=== PATIENT | female | born 1955 | race American Indian/Alaskan Native ===

== ENCOUNTER 2017-02-18 10:01 | Emergency (ER) | payer MEDICAID ==
--- NOTE | 2017-02-18 12:16 | Emergency Department Report ---
ED Back Pain/Injury HPI - General Chief Complaint: Fall Stated Complaint: FALL/LOWER BACK PAIN Time Seen by Provider: 02/18/17 12:10 Source: patient Limitations: Physical Limitation - History of Present Illness Initial Comments: 62-year-old female past medical history hypertension, left breast cancer, spondylolisthesis, sciatica, lumbar spine surgery November 2016 presents with complaint of lower back pain since 1 PM yesterday. Patient states that she showered walked into her bedroom and tripped over a towel. Patient fell in a seated position. Denies any loss of consciousness. Was able to stand up on her own afterward. States that she called and informed her orthopedic/spine surgeon advised her to come to the ED for evaluation. On exam patient is awake alert and oriented 3 denies any head trauma during fall. Patient is ambulatory without assistance in the examination room is able to take several steps independently without assistance. States she has pain in her lower back. Some mild radiation to the right buttock. Denies any new saddle paresthesias no bladder or bowel incontinence reported by the patient. MD Complaint: back pain, fall Onset/Timin -: days(s) Similar Symptoms Previously: Yes Place: home Severity scale (0 -10): 6 Quality: aching Consistency: intermittent Improves With: immobilization, supine Worsens With: movement Context: while lifting, turning/twisting Associated Symptoms: denies other symptoms - Related Data Home Medications Medication Instructions Recorded Confirmed Last Taken Anastrozole (Nf) [Arimidex (Nf)] 1 mg PO DAILY 06/24/13 06/24/13 Unknown Ergocalciferol (Vitamin D2) 50,000 unit PO Q4W 06/24/13 06/24/13 Unknown [Vitamin D2] Lisinopril [Zestril] 20 mg PO QDAY 06/24/13 06/24/13 Unknown Ranitidine HCl [Zantac] 150 mg PO BID 06/24/13 06/24/13 Unknown Zolpidem [Ambien] 10 mg PO QHS 06/24/13 06/24/13 Unknown Previous Rx's Medication Instructions Recorded Last Taken Type Nitrofurantoin [place]/M-Cryst 100 mg PO Q12HR #20 capsule 06/24/13 Unknown Rx [Macrobid] traMADol [Ultram] 50 mg PO Q6HR PRN #10 tablet 06/24/13 Unknown Rx Allergies Allergy/AdvReac Type Severity Reaction Status Date / Time hydrocodone [Hydrocodone] AdvReac Severe Rash Verified 02/18/17 10:36 codeine AdvReac Itching Verified 02/18/17 10:40 hydrochlorothiazide AdvReac Itching Verified 02/18/17 10:40 ED Review of Systems ROS: Stated complaint: FALL/LOWER BACK PAIN Other details as noted in HPI Constitutional: denies: chills, fever Eyes: denies: eye pain, eye discharge, vision change ENT: denies: ear pain, throat pain Respiratory: denies: cough, shortness of breath, wheezing Cardiovascular: denies: chest pain, palpitations Endocrine: no symptoms reported Gastrointestinal: denies: abdominal pain, nausea, diarrhea Genitourinary: denies: urgency, dysuria, discharge Musculoskeletal: denies: back pain, joint swelling, arthralgia Skin: denies: rash, lesions Neurological: denies: headache, weakness, paresthesias Psychiatric: denies: anxiety, depression Hematological/Lymphatic: denies: easy bleeding, easy bruising ED Past Medical Hx - Past Medical History Hx Hypertension: Yes Hx Diabetes: Yes Hx GERD: Yes Hx of Cancer: Yes (LEFT BREAST) Hx Arthritis: Yes Hx Psychiatric Treatment: Yes Additional medical history: depression. SPONDYLOLISTHESIS LUMBOSACRAL REGION - Surgical History Hx Cholecystectomy: Yes Hx Breast Surgery: Yes (LEFT BREAST) Additional Surgical History: hernia repair x 2. bilateral ankle surgery. BACK SURGERY NOVEMBER 2016. HYSTERECTOMY - Social History Smoking Status: Never Smoker Substance Use Type: Prescribed - Medications Home Medications: Home Medications Medication Instructions Recorded Confirmed Last Taken Type Anastrozole (Nf) [Arimidex (Nf)] 1 mg PO DAILY 06/24/13 06/24/13 Unknown History Ergocalciferol (Vitamin D2) 50,000 unit PO Q4W 06/24/13 06/24/13 Unknown History [Vitamin D2] Lisinopril [Zestril] 20 mg PO QDAY 06/24/13 06/24/13 Unknown History Nitrofurantoin [place]/M-Cryst 100 mg PO Q12HR #20 capsule 06/24/13 Unknown Rx [Macrobid] Ranitidine HCl [Zantac] 150 mg PO BID 06/24/13 06/24/13 Unknown History Zolpidem [Ambien] 10 mg PO QHS 06/24/13 06/24/13 Unknown History traMADol [Ultram] 50 mg PO Q6HR PRN #10 tablet 06/24/13 Unknown Rx ED Physical Exam - General Limitations: Physical Limitation General appearance: alert, in no apparent distress - Head Head exam: Present: atraumatic, normocephalic - Eye Eye exam: Present: normal appearance, PERRL, EOMI - ENT ENT exam: Present: mucous membranes moist - Neck Neck exam: Present: normal inspection - Respiratory Respiratory exam: Present: normal lung sounds bilaterally. Absent: respiratory distress - Cardiovascular Cardiovascular Exam: Present: regular rate, normal rhythm. Absent: systolic murmur, diastolic murmur, rubs, gallop - GI/Abdominal GI/Abdominal exam: Present: soft, normal bowel sounds - Extremities Exam Extremities exam: Present: normal inspection - Back Exam Back exam: Present: normal inspection, full ROM - Neurological Exam Neurological exam: Present: alert, oriented X3, CN II-XII intact, normal gait - Psychiatric Psychiatric exam: Present: normal affect, normal mood - Skin Skin exam: Present: warm, dry, intact, normal color. Absent: rash ED Course Vital Signs 02/18/17 02/18/17 10:42 13:35 Temperature 98.5 F Pulse Rate 81 80 Respiratory 17 18 Rate Blood Pressure 152/99 Blood Pressure 148/92 [Right] O2 Sat by Pulse 100 Oximetry ED Medical Decision Making - Medical Decision Making A/P: Mechanical fall, acute on chronic lower back pain 1-CT shows no acute fracture, chronic degenerative changes, stable fixation from surgery 2-patient has no clinical signs of cord compression or cauda equina, distal reflexes intact, strength 5 out of 5 lower extremities, patient is ambulatory without assistance, normal rectal tone, no reports of bladder or bowel incontinence. 3-I called patient's spine surgeon at [phone] multiple times, no response. I advised patient to call her spine surgeon and informed him that she was evaluated in the ED. I provided patient with copy of her CT result. 4- patient states that she has prescription for oral Dilaudid for her chronic pain at home. Critical care attestation.: If time is entered above; I have spent that time in minutes in the direct care of this critically ill patient, excluding procedure time. ED Disposition Clinical Impression: Lower back pain Qualifiers: Chronicity: chronic Back pain laterality: bilateral Sciatica presence: with sciatica Sciatica laterality: sciatica of right side Qualified Code(s): M54.41 - Lumbago with sciatica, right side Sciatica Qualifiers: Laterality: right Qualified Code(s): M54.31 - Sciatica, right side Fall Qualifiers: Encounter type: initial encounter Qualified Code(s): W19.XXXA - Unspecified fall, initial encounter Disposition: TO HOME OR SELFCARE Is pt being admited?: No Does the pt Need Aspirin: No Condition: Stable Instructions: Back Pain (ED) Referrals: PREM PARKER MD [Staff Physician] - 3-5 Days DELL WHITE MD [Staff Physician] - 3-5 Days Time of Disposition: 13:27
--- NOTE | 2017-02-18 13:07 | Cat Scan Report ---
CT scan of lumbar spine: History: Status post fall, history of multiple spinal surgeries. Findings: Normal height of vertebral bodies. Posterior fusion L3, L4 and L5 with stabilizing rods and interpedicular screws. Spacing device at L3-L4 and L4-5 appears stable and intact. Satisfactory vertebral body alignment. No evidence of acute fracture. Diffuse disc bulge noted at L2-L3 with narrowing of the neural foramina bilaterally. Degenerative facet joints. L4-L5 and L5-S1 thecal sac and spinal canal is not optimally visualized due to artifacts from metallic hardware. Bulging disc noted at L4-L5 without any definite neural foramina narrowing. Degenerative facet joints. Impression: No evidence of acute fracture. Stable posterior fusion. Additional findings as detailed above.
[2017-02-18 13:35] VITALS: BP 148/92
== END 2017-02-18 13:33 | disposition home or self-care (01) ==
LOC: ED 10:01
DX: M54.41 Lumbago with sciatica, right side (principal); I10 Essential (primary) hypertension; E11.9 Type 2 diabetes mellitus without complications; K21.9 Gastro-esophageal reflux disease without esophagitis; M19.90 Unspecified osteoarthritis, unspecified site; F32.9 Major depressive disorder, single episode, unspecified; Z90.710 Acquired absence of both cervix and uterus; Z85.3 Personal history of malignant neoplasm of breast; Z90.49 Acquired absence of other specified parts of digestive tract; Z88.6 Allergy status to analgesic agent; W01.0XXA Fall on same level from slipping, tripping and stumbling without subsequent striking against object, initial encounter; Y93.89 Activity, other specified; Y99.8 Other external cause status; Y92.098 Other place in other non-institutional residence as the place of occurrence of the external cause
CPT/HCPCS: 72131

== ENCOUNTER 2017-04-18 22:39 | Emergency (ER) | payer MEDICAID ==
--- NOTE | 2017-04-19 02:32 | Emergency Department Report ---
ED Back Pain/Injury HPI - General Chief Complaint: Back Pain/Injury Stated Complaint: BACK PAIN Source: patient Limitations: No Limitations - Related Data Home Medications Medication Instructions Recorded Confirmed Last Taken Anastrozole (Nf) [Arimidex (Nf)] 1 mg PO DAILY 06/24/13 06/24/13 Unknown Ergocalciferol (Vitamin D2) 50,000 unit PO Q4W 06/24/13 06/24/13 Unknown [Vitamin D2] Lisinopril [Zestril] 20 mg PO QDAY 06/24/13 06/24/13 Unknown Ranitidine HCl [Zantac] 150 mg PO BID 06/24/13 06/24/13 Unknown Zolpidem [Ambien] 10 mg PO QHS 06/24/13 06/24/13 Unknown Previous Rx's Medication Instructions Recorded Last Taken Type Nitrofurantoin [place]/M-Cryst 100 mg PO Q12HR #20 capsule 06/24/13 Unknown Rx [Macrobid] traMADol [Ultram] 50 mg PO Q6HR PRN #10 tablet 06/24/13 Unknown Rx Allergies Allergy/AdvReac Type Severity Reaction Status Date / Time hydrocodone [Hydrocodone] AdvReac Severe Rash Verified 02/18/17 10:36 codeine AdvReac Itching Verified 02/18/17 10:40 hydrochlorothiazide AdvReac Itching Verified 02/18/17 10:40 ED Review of Systems ROS: Stated complaint: BACK PAIN Other details as noted in HPI ED Past Medical Hx - Past Medical History Hx Hypertension: Yes Hx Diabetes: Yes Hx GERD: Yes Hx Arthritis: Yes Hx Psychiatric Treatment: Yes Additional medical history: depression. SPONDYLOLISTHESIS LUMBOSACRAL REGION - Surgical History Hx Cholecystectomy: Yes Hx Breast Surgery: Yes (LEFT BREAST) Additional Surgical History: hernia repair x 2. bilateral ankle surgery. BACK SURGERY NOVEMBER 2016. HYSTERECTOMY - Social History Smoking Status: Never Smoker Substance Use Type: None - Medications Home Medications: Home Medications Medication Instructions Recorded Confirmed Last Taken Type Anastrozole (Nf) [Arimidex (Nf)] 1 mg PO DAILY 06/24/13 06/24/13 Unknown History Ergocalciferol (Vitamin D2) 50,000 unit PO Q4W 06/24/13 06/24/13 Unknown History [Vitamin D2] Lisinopril [Zestril] 20 mg PO QDAY 06/24/13 06/24/13 Unknown History Nitrofurantoin [place]/M-Cryst 100 mg PO Q12HR #20 capsule 06/24/13 Unknown Rx [Macrobid] Ranitidine HCl [Zantac] 150 mg PO BID 06/24/13 06/24/13 Unknown History Zolpidem [Ambien] 10 mg PO QHS 06/24/13 06/24/13 Unknown History traMADol [Ultram] 50 mg PO Q6HR PRN #10 tablet 06/24/13 Unknown Rx ED Physical Exam - General Limitations: No Limitations ED Course Vital Signs 04/18/17 23:43 Temperature 98.0 F Pulse Rate 78 Respiratory 18 Rate Blood Pressure 180/100 [Right] O2 Sat by Pulse 99 Oximetry Critical care attestation.: If time is entered above; I have spent that time in minutes in the direct care of this critically ill patient, excluding procedure time. ED Disposition Condition: Stable Referrals: PRIMARY CARE, [Primary Care Provider] - 3-5 Days
[2017-04-19] MEDS ORDERED: ULTRAM PO ONE (02:40)
[2017-04-19] MEDS ORDERED: DECADRON IM ONE (02:40)
[2017-04-19] MEDS ORDERED: TORADOL IM ONE (02:40)
[2017-04-19] MEDS ORDERED: TORADOL ONE (02:59)
[2017-04-19 05:23] VITALS: BP 168/92
== END 2017-04-19 05:24 | disposition home or self-care (01) ==
LOC: ED 22:39
DX: M54.9 Dorsalgia, unspecified (principal); K21.9 Gastro-esophageal reflux disease without esophagitis; F32.9 Major depressive disorder, single episode, unspecified; Z90.710 Acquired absence of both cervix and uterus; W17.89XA Other fall from one level to another, initial encounter; Y93.89 Activity, other specified; Y92.89 Other specified places as the place of occurrence of the external cause; Y99.8 Other external cause status
CPT/HCPCS: 96372; 99282; J1100; J1885

== ENCOUNTER 2020-01-06 21:32 | Emergency (ER) | payer MEDICARE, MEDICAID ==
[2020-01-06] MEDS ORDERED: cloNIDine 0.1 MG TAB PO ONE (22:28)
[2020-01-06] MEDS ORDERED: CLINDAMYCIN 300 MG CAP PO ONE (22:29)
--- NOTE | 2020-01-06 22:32 | Emergency Department Report ---
ED General Adult HPI - General Chief complaint: Skin/Abscess/Foreign Body Stated complaint: HEAD RT SHOULDER PAIN Time Seen by Provider: 01/06/20 22:20 Source: patient Mode of arrival: Ambulatory Limitations: No Limitations - History of Present Illness Initial comments: Patient is 64-year-old female with history of hypertension and diabetes. Patient presented to the ER complaining of swelling to the back of the scalp. Patient stated that swelling started yesterday and is painful. Patient denied any fever or chills. Patient denied any recent injury. Patient found to have a blood pressure of 226/119. Patient stated that she is out of her blood pressure medication. Patient immediately given clonidine 0.2 mg and given clindamycin. Severity scale (0 -10): 10 - Related Data Home Medications Medication Instructions Recorded Confirmed Last Taken Anastrozole (Nf) [Arimidex (Nf)] 1 mg PO DAILY 06/24/13 06/24/13 Unknown Ergocalciferol (Vitamin D2) 50,000 unit PO Q4W 06/24/13 06/24/13 Unknown [Vitamin D2] Ranitidine HCl [Zantac] 150 mg PO BID 06/24/13 06/24/13 Unknown Zolpidem [Ambien] 10 mg PO QHS 06/24/13 06/24/13 Unknown lisinopriL [Zestril] 20 mg PO QDAY 06/24/13 06/24/13 Unknown Previous Rx's Medication Instructions Recorded Last Taken Type Nitrofurantoin [place]/M-Cryst 100 mg PO Q12HR #20 capsule 06/24/13 Unknown Rx [Macrobid] traMADoL [Ultram] 50 mg PO Q6HR PRN #10 tablet 06/24/13 Unknown Rx Ibuprofen [Motrin] 800 mg PO Q8HR #21 tablet 04/19/17 Unknown Rx methOCARBAMOL [Robaxin TAB] 500 mg PO TID #21 tab 04/19/17 Unknown Rx oxyCODONE /ACETAMINOPHEN [Percocet 1 - 2 tab PO Q6HR PRN #14 tablet 07/29/18 Un known Rx 5/325] Allergies Allergy/AdvReac Type Severity Reaction Status Date / Time hydrocodone [Hydrocodone] AdvReac Severe Rash Verified 02/18/17 10:36 codeine AdvReac Itching Verified 02/18/17 10:40 hydrochlorothiazide AdvReac Itching Verified 02/18/17 10:40 ED Review of Systems ROS: Stated complaint: HEAD RT SHOULDER PAIN Other details as noted in HPI Comment: All other systems reviewed and negative Constitutional: denies: chills, fever Respiratory: denies: cough, shortness of breath, SOB with exertion, wheezing Cardiovascular: denies: chest pain, palpitations Gastrointestinal: denies: abdominal pain, nausea, vomiting Neurological: denies: headache, weakness ED Past Medical Hx - Past Medical History Hx Hypertension: Yes Hx Diabetes: Yes Hx GERD: Yes Hx of Cancer: Yes (Left breast remission) Hx Arthritis: Yes Hx Psychiatric Treatment: Yes Additional medical history: depression. SPONDYLOLISTHESIS LUMBOSACRAL REGION - Surgical History Past Surgical History?: Yes Hx Cholecystectomy: Yes Hx Breast Surgery: Yes (LEFT BREAST) Additional Surgical History: hernia repair x 2. bilateral ankle surgery. BACK SURGERY(herniated disc) NOVEMBER 2016, rods and screws placed. HYSTERECTOMY - Social History Smoking Status: Never Smoker Substance Use Type: None - Medications Home Medications: Home Medications Medication Instructions Recorded Confirmed Last Taken Type Anastrozole (Nf) [Arimidex (Nf)] 1 mg PO DAILY 06/24/13 06/24/13 Unknown History Ergocalciferol (Vitamin D2) 50,000 unit PO Q4W 06/24/13 06/24/13 Unknown History [Vitamin D2] Nitrofurantoin [place]/M-Cryst 100 mg PO Q12HR #20 capsule 06/24/13 Unknown Rx [Macrobid] Ranitidine HCl [Zantac] 150 mg PO BID 06/24/13 06/24/13 Unknown History Zolpidem [Ambien] 10 mg PO QHS 06/24/13 06/24/13 Unknown History lisinopriL [Zestril] 20 mg PO QDAY 06/24/13 06/24/13 Unknown History traMADoL [Ultram] 50 mg PO Q6HR PRN #10 tablet 06/24/13 Unknown Rx Ibuprofen [Motrin] 800 mg PO Q8HR #21 tablet 04/19/17 Unknown Rx methOCARBAMOL [Robaxin TAB] 500 mg PO TID #21 tab 04/19/17 Unknown Rx oxyCODONE /ACETAMINOPHEN [Percocet 1 - 2 tab PO Q6HR PRN #14 tablet 07/29/18 Unknown Rx 5/325] ED Physical Exam - General Limitations: No Limitations General appearance: alert, in no apparent distress - Head Head exam: Present: atraumatic, normocephalic, normal inspection - Eye Eye exam: Present: normal appearance - ENT ENT exam: Present: normal exam, normal orophraynx, mucous membranes moist - Neck Neck exam: Present: normal inspection, full ROM. Absent: tenderness, meningism us, lymphadenopathy, thyromegaly - Respiratory Respiratory exam: Present: normal lung sounds bilaterally - Cardiovascular Cardiovascular Exam: Present: regular rate, normal rhythm, normal heart sounds - GI/Abdominal GI/Abdominal exam: Present: soft, normal bowel sounds. Absent: distended, tenderness, guarding, rebound, rigid, mass, bruit, pulsatile mass, hernia - Extremities Exam Extremities exam: Present: normal inspection, full ROM, normal capillary refill - Neurological Exam Neurological exam: Present: alert, oriented X3, CN II-XII intact, normal gait, reflexes normal - Psychiatric Psychiatric exam: Present: normal mood - Skin Skin exam: Present: warm, other (Swelling to the back of the scalp, 3 x 3 cm, nonfluctuant.) ED Course Vital Signs 01/06/20 01/06/20 01/06/20 21:50 22:19 22:24 Temperature 97.5 F L Pulse Rate 102 H 91 H Respiratory 18 18 Rate Blood Pressure 226/119 204/115 Blood Pressure 204/115 [Left] O2 Sat by Pulse 99 98 98 Oximetry 01/06/20 01/06/20 01/06/20 22:26 22:30 22:34 Temperature Pulse Rate 88 Respiratory Rate Blood Pressure 204/115 204/115 204/115 Blood Pressure [Left] O2 Sat by Pulse 98 97 Oximetry 01/06/20 01/06/20 01/06/20 22:46 23:00 23:15 Temperature Pulse Rate Respiratory Rate Blood Pressure 176/102 198/100 193/98 Blood Pressure [Left] O2 Sat by Pulse 98 98 98 Oximetry 01/06/20 01/06/20 01/06/20 23:28 23:30 23:32 Temperature Pulse Rate Respiratory Rate Blood Pressure 204/115 197/98 197/98 Blood Pressure [Left] O2 Sat by Pulse 98 98 98 Oximetry 01/06/20 01/07/20 01/07/20 23:46 00:00 00:30 Temperature Pulse Rate Respiratory Rate Blood Pressure 193/98 144/84 153/71 Blood Pressure [Left] O2 Sat by Pulse 96 96 98 Oximetry 01/07/20 01/07/20 01/07/20 00:45 01:00 01:15 Temperature Pulse Rate Respiratory Rate Blood Pressure 132/64 119/61 121/67 Blood Pressure [Left] O2 Sat by Pulse 99 96 95 Oximetry 01/07/20 01:30 Temperature Pulse Rate Respiratory Rate Blood Pressure 132/64 Blood Pressure [Left] O2 Sat by Pulse 95 Oximetry ED Medical Decision Making - Lab Data Result diagrams: 01/06/20 22:32 01/06/20 22:32 - Medical Decision Making Patient is 64-year-old female with history of hypertension and diabetes. Patient presented to the ER complaining of swelling to the back of the scalp. Patient stated that swelling started yesterday and is painful. Patient denied any fever or chills. Patient denied any recent injury. Patient found to have a blood pressure of 226/119. Patient stated that she is out of her blood pressure medication. Patient immediately given clonidine 0.2 mg and given clindamycin. Patient found to have elevated blood sugar at 440. Patient received insulin 5 units subcu twice with improvement of her blood sugar. Blood pressure improved significantly after clonidine. Patient given prescription for clindamycin, tramadol and Zofran. Patient was taking lisinopril so I refilled her medication. Patient advised to follow-up with her primary doctor in the next 2 to 3 days and to return to the ER if she develop any new symptoms. Critical care attestation.: If time is entered above; I have spent that time in minutes in the direct care of this critically ill patient, excluding procedure time. ED Disposition Clinical Impression: Abscess, Acute hyperglycemia, Malignant hypertension Disposition: -01 TO HOME OR SELFCARE Is pt being admited?: No Condition: Stable Instructions: Hypertension (ED), Abscess (ED), Diabetic Hyperglycemia (ED) Referrals: PATEL KIRKPATRICK MD [Primary Care Provider] - 3-5 Days
[2020-01-06] MEDS ORDERED: ONDANSETRON 4 MG/2 ML INJ IM ONE (22:34)
[2020-01-06] MEDS ORDERED: MORPHINE 4 MG/1 ML INJ IM ONE (22:34)
[2020-01-06 22:53] LABS: Basophils # (Auto) 0.1 K/mm3 (0.0-0.1); Basophils % (Auto) 0.7 % (0.0-1.8); Eosinophils # (Auto) 0.2 K/mm3 (0.0-0.4); Hematocrit 36.8 % (30.3-42.9); Hemoglobin 11.6 gm/dl (10.1-14.3); Lymphocytes # (Auto) 2.4 K/mm3 (1.2-5.4); Lymphocytes % (Auto) 22.2 % (13.4-35.0); Mean Corpuscular HGB Conc 32 % (30-34); Mean Corpuscular Volume 79 fl (79-97); Monocytes # (Auto) 0.8 K/mm3 (0.0-0.8); Monocytes % (Auto) 7.7 % (0.0-7.3); Platelet Count 360 K/mm3 (140-440); Red Blood Count 4.65 M/mm3 (3.65-5.03)
[2020-01-06 23:06] LABS: BUN/Creatinine Ratio 21; Blood Urea Nitrogen 15 mg/dL (7-17); Calcium 10.3 mg/dL (8.4-10.2); Hemolysis Index 10
[2020-01-06] MEDS ORDERED: INSULIN REGULAR, HUMAN 100 UNITS/1 ML SUB-Q ONE (23:07)
[2020-01-07] MEDS ORDERED: MORPHINE 2 MG/1 ML INJ ONE (00:31)
[2020-01-07] MEDS ORDERED: MORPHINE 2 MG/1 ML INJ IM ONE (00:34)
[2020-01-07] MEDS ORDERED: INSULIN REGULAR, HUMAN 100 UNITS/1 ML SUB-Q ONE (00:35)
[2020-01-08 12:54] VITALS: BP 128/71
== END 2020-01-07 03:39 | disposition home or self-care (01) ==
LOC: ED 21:32
DX: L02.91 Cutaneous abscess, unspecified (principal); I10 Essential (primary) hypertension; E11.65 Type 2 diabetes mellitus with hyperglycemia; K21.9 Gastro-esophageal reflux disease without esophagitis; M19.90 Unspecified osteoarthritis, unspecified site; F32.9 Major depressive disorder, single episode, unspecified; Z98.890 Other specified postprocedural states; Z79.899 Other long term (current) drug therapy; Z88.6 Allergy status to analgesic agent; Z88.8 Allergy status to other drugs, medicaments and biological substances; Z90.49 Acquired absence of other specified parts of digestive tract
CPT/HCPCS: 36415; 80048; 82962; 85025; 96372; 99283; J2270; J2405; J1815

== ENCOUNTER 2021-06-29 09:36 | Day surgery (SDC) | payer MEDICARE ==
[2021-06-29] MEDS ORDERED: LACTATED RINGERS 1,000 ML ONE (10:54)
--- NOTE | 2021-06-29 11:11 | Anesthesia Consultation ---
Anesthesia Consult and Med Hx Date of service: 06/29/21 - Airway Anesthetic Teeth Evaluation: Good ROM Head & Neck: Adequate Mental/Hyoid Distance: Adequate Mallampati Class: Class II Intubation Access Assessment: Probably Good - Pulmonary Exam CTA: Yes - Cardiac Exam Cardiac Exam: RRR - Pre-Operative Health Status ASA Pre-Surgery Classification: ASA2 Proposed Anesthetic Plan: General - Pulmonary Hx Smoking: No Hx Asthma: No COPD: No Hx Sleep Apnea: No (EMMETT PRE SCREEN LOW RISK) - Cardiovascular System Hx Hypertension: Yes - Central Nervous System Hx Back Pain: Yes (CHRONIC) - Gastrointestinal Hx Gastroesophageal Reflux Disease: No - Endocrine Hx Renal Disease: No Hx Liver Disease: No Hx Non-Insulin Dependent Diabetes: Yes Hx Thyroid Disease: No - Hematic Hx Anemia: No - Other Systems Hx Alcohol Use: No Hx Substance Use: No Hx Cancer: Yes
--- NOTE | 2021-06-29 11:11 | Anesthesia Day of Surgery ---
Anesthesia Day of Surgery - Day of Surgery Patient Examined: Yes Patient H&P Reviewed: Yes Patient is NPO: Yes
[2021-06-29] MEDS ORDERED: ONDANSETRON 4 MG/2 ML INJ IV PRN (11:13)
[2021-06-29] MEDS ORDERED: HYDROmorphone 1 MG/1 ML INJ IV PRN ×2 (11:13)
[2021-06-29] MEDS ORDERED: LACTATED RINGERS 1,000 ML IV SCH (11:15)
[2021-06-29] MEDS ORDERED: fentaNYL 100 MCG/2 ML INJ IV ONE ×2 (12:00→13:00)
[2021-06-29] MEDS ORDERED: ceFAZolin/Water 2 GM/20 ML 2 GM/20 ML SYRINGE IV SCH (12:00)
[2021-06-29] MEDS ORDERED: GENTAMICIN/NS 80 MG/100 ML 100 ML IV SCH (12:00)
[2021-06-29] MEDS ORDERED: LIDOCAINE MPF (2%) 20 MG/1 ML VIAL 5 ML ONE (12:44)
[2021-06-29] MEDS ORDERED: fentaNYL 100 MCG/2 ML INJ ONE (12:44)
[2021-06-29] MEDS ORDERED: propofoL 200 MG/20 ML VIAL IV ONE (12:45)
[2021-06-29] MEDS ORDERED: PHENYLEPHRINE/NS 1,000 MCG/10 ML SYRINGE (OR USE) IV ONE (13:26)
[2021-06-29] MEDS ORDERED: WATER FOR IRRIG STERILE 1,500 ML BOTTLE IR ONE (13:33)
[2021-06-29] MEDS ORDERED: WATER FOR IRRIG STERILE 2000 ML IR ONE ×2 (13:33)
[2021-06-29] MEDS ORDERED: ePHEDrine SULFATE 50 MG/1 ML INJ ONE (13:49)
[2021-06-29] MEDS ORDERED: KETOROLAC 30 MG/1 ML INJ ONE (14:08)
--- NOTE | 2021-06-29 15:09 | Discharge Summary ---
Short Stay Discharge Plan Activity: other (no straining ) Weight Bearing Status: Full Weight Bearing Diet: low fat, low cholesterol, low salt Durable Medical Equipment Needed Upon Discharge: other (home with mckeon ) Follow up with: Lily DUNLAP [Other] - 7 Days
--- NOTE | 2021-06-29 15:10 | Post Operative Note ---
Date of procedure: 06/29/21 Pre-op diagnosis: pneumaturia Post-op diagnosis: same Findings: severe infla and tics Procedure: cyato bx Anesthesia: GETA Surgeon: ROBERT GARG Estimated blood loss: none Pathology: list (bladder) Specimen disposition: to lab Condition: stable Disposition: PACU
--- NOTE | 2021-06-29 15:19 | Operative Report ---
DATE OF SURGERY: 06/29/2021 PREOPERATIVE DIAGNOSES: Pneumaturia, chronic infection, possibly a fistula. POSTOPERATIVE DIAGNOSES: Severe inflammatory disorder of the bladder, hematuria, no papillary lesions, but irregular epithelium throughout the bladder. PROCEDURES: Cystogram and biopsies. SURGEON: Anton Mariscal MD ANESTHESIA: General. FINDINGS: This is a woman who has foul-smelling urine, pneumaturia, cannot get rid of infection, now presents for cystoscopy. DESCRIPTION OF PROCEDURE: The patient was brought to the operating room and placed on the operating table. Following induction of anesthesia, placed in lithotomy position, prepped and draped in usual sterile fashion. Cystourethroscopy showed cloudy urine. There was diverticulum and cellules throughout the bladder. These were quite prominent. All of them that we saw were of broad mouth, we could enter with the scope. We did not see a definitive fistula, just severe inflammatory changes along the entire epithelium. The biopsies were taken well away from the trigone, which was inflamed and there was reflux up the right ureter. We did not want to disturb the orifices. We did not see a fistula on cystogram, pretty much all drained out except for a little bit of broader mouth diverticulum. The patient tolerated the procedure well. The area was cauterized. We left the Reynolds. Let us see what the final pathology is. TID: [id number] RECEIPT: [id number] ALFONSO/ELIZABETH
--- NOTE | 2021-06-29 15:50 | Fluoroscopy Report ---
FL cystogram static-OR INDICATION / CLINICAL INFORMATION: OVERACTIVE BLADDER. COMPARISON: None available. FINDINGS: Intraoperative cystography was performed. The bladder is enlarged, trabeculated and contains multiple diverticuli. Reflux is noted on the right. No significant postdrainage residual. Fluoroscopy time: 31 seconds. Fluoroscopic images: 6. Signer Name: Rickie Suh MD Signed: 06/29/2021 3:45 PM Workstation Name: [id number]
[2021-06-29 16:19] VITALS: BP 153/74
== END 2021-06-29 09:37 | disposition home or self-care (01) ==
LOC: OR 09:36
PROVIDERS: ATTEND Urology
DX: R31.0 Gross hematuria (principal); N30.00 Acute cystitis without hematuria; I10 Essential (primary) hypertension; K21.9 Gastro-esophageal reflux disease without esophagitis; E11.9 Type 2 diabetes mellitus without complications; F41.9 Anxiety disorder, unspecified; F32.9 Major depressive disorder, single episode, unspecified; Z85.3 Personal history of malignant neoplasm of breast; Z90.710 Acquired absence of both cervix and uterus; Z98.890 Other specified postprocedural states; Z79.899 Other long term (current) drug therapy; Z79.4 Long term (current) use of insulin; Z88.5 Allergy status to narcotic agent; Z88.8 Allergy status to other drugs, medicaments and biological substances
CPT/HCPCS: 52204; 74430; 82962; 88305; A4217; C1758; J1170; J1580; J1885; J2370; J2704; J3010; J7120; Q9967

== ENCOUNTER 2021-11-02 09:56 | Outpatient (CLI) | payer MEDICARE ==
--- NOTE | 2021-11-03 07:41 | Fluoroscopy Report ---
FLUOROSCOPY CYSTOGRAM STATIC INDICATION: N32.81 OVERACTIVE BLADDER. COMPARISON: 06/29/2021 IMPRESSION: 3.1 minutes of fluoroscopy time was utilized. 12 fluoroscopic images were obtained. Appr oximately 300 cc of water-soluble contrast was infused into the bladder via the Reynolds catheter. Numer ous small and large diverticula project from the superior bladder. The overall appearance is similar to 06/29/2021 exam. No evidence for extravasation, vesicoureteral reflux or bladder filling defect. D greg johnson IMPRESSION: Diverticulosis of the bladder without acute abnormality. Signer Name: Kasi Lloyd Jr, MD Signed: 11/03/2021 7:37 AM Workstation Name: [id number]
== END 2021-11-02 09:57 | disposition home or self-care (01) ==
LOC: FLUORO 09:56
PROVIDERS: ATTEND Urology
DX: N32.81 Overactive bladder (principal); K57.90 Diverticulosis of intestine, part unspecified, without perforation or abscess without bleeding; E11.9 Type 2 diabetes mellitus without complications; I10 Essential (primary) hypertension; K21.9 Gastro-esophageal reflux disease without esophagitis; M19.90 Unspecified osteoarthritis, unspecified site; F32.9 Major depressive disorder, single episode, unspecified; F41.9 Anxiety disorder, unspecified; Z88.5 Allergy status to narcotic agent; Z88.8 Allergy status to other drugs, medicaments and biological substances; Z79.899 Other long term (current) drug therapy; Z79.4 Long term (current) use of insulin; Z90.49 Acquired absence of other specified parts of digestive tract; Z85.3 Personal history of malignant neoplasm of breast; Z98.890 Other specified postprocedural states; Z90.710 Acquired absence of both cervix and uterus; Z87.440 Personal history of urinary (tract) infections; Z85.89 Personal history of malignant neoplasm of other organs and systems
CPT/HCPCS: 51600; 74430; Q9958